=== PATIENT | female | born 1995 ===

== ENCOUNTER 2017-11-25 11:37 | Inpatient (IN) | payer MEDICAID ==
[2017-11-25] MEDS ORDERED: Lactated Ringer's 1,000 ML IV SCH (11:45)
[2017-11-25] MEDS ORDERED: Lidocaine Hydrochloride 5 ML INJ ONE (12:14)
[2017-11-25 12:35] VITALS: BMI 21.6
[2017-11-25] MEDS ORDERED: Oxycodone/Acetaminophen 5/325 mg Tab PO PRN (12:42)
[2017-11-25] MEDS ORDERED: Benzocaine/Menthol SPRAY TOP PRN (12:42)
--- NOTE | 2017-11-25 12:42 | OBDS ---
DELIVERY PERSONNEL Nurse Puncher Certified: carloz Delivery Doctor: DR Herndon Scrub Nurse: carloz Scooper: ANA Emery/Deepika Stratton RN/Sherri Pelletier RN Anesthesiologist: carloz Physician Office Secretary: carloz Resident: Dr Kim MATERNAL INFORMATION Delivery Anesthesia: Local Medications in Delivery: pitocin Estimated Blood Loss (ml): 150cc Placenta Cultured: No RN Comments: precipitous to alive baby girl with one loose cord around the neck upon arrival in [facility]; 9/9;Dr Kim in attendance; DR Chavez in the unit, delivered placenta- complete; repair of lacerations done by same doctors Provider Comments: Pt was fully dilated and was pushing when she got to the [facility]. She immediately pu she the baby out. A viable female with BW of 3030gma and scores of 9 and 9 was delivered over a second degree perineal laceration which was repaired with 2-0 chromic with good cosmesis. EBL - 250mls Pt tolerated procedure well. LABOR SUMMARY EDC: 12/19/2017 00:00 No. Babies in Womb: 1 Attempted: No LABOR INFORMATION Onset of Labor: 11/24/2017 01:00 Other Ripening Agents: na Oxytocin: na Steroids Given: None Reason Steroids Not Administered: Not Applicable Other Reason Not Administered: na MEMBRANES Membranes Rupture Method: unknown STAGES OF LABOR Stage 3 hrs: 0 Stage 3 min: 22 Total Time in Labor hrs: 35 Total Time in Labor min: 4 VAGINAL DELIVERY Episiotomy: None Laceration Extension: Second Degree Laceration Type: Perineal Laceration Repair: Yes Initial Vag Sponge Count: 6 Final Vag Sponge Count: 6 Initial Vag Sharps Count: 3 Final Vag Sharps Count: 3 Sharps Count Correct: Yes Count Comment: count correct/ ChayitoRN BABY A INFORMATION Delivery Date/Time: 11/25/2017 11:42 Method of Delivery: Vaginal Born in Route : No : N/A Forceps: N/A Vacuum Extraction: N/A Shoulder Dystocia : No SHOULDER DYSTOCIA BABY A Delivery Date/Time: 11/25/2017 11:42 PRESENTATION/POSITION BABY A Presentation: Cephalic Cephalic Presentation: Vertex Breech Presentation: N/A PLACENTA INFORMATION BABY A Placenta Delivery Time : 11/25/2017 12:04 Placenta Method of Delivery: Spontaneous Placenta Status: Delivered SCORES BABY A Heart Rate 1 min: >100 bpm Resp Effort 1 min: Good Cry Reflex Irritability 1 min: Cough or Sneeze or Pulls Away Muscle Tone 1 min: Active Motion Color 1 min: Body Huslia, Extremities Blue Resuscitation Effort 1 min: Tactile Stimulation SCORE 1 MIN: 9 Heart Rate 5 min: >100 bpm Resp Effort 5 min: Good Cry Reflex Irritability 5 min: Cough or Sneeze or Pulls Away Muscle Tone 5 min: Active Motion INFORMATION BABY A Gestational Age at Delivery: 36.4 Gestational Status: Outcome : Liveborn Infant Condition : Stable Infant Sex: Female WEIGHT/LENGTH BABY A Infant Birthweight (gms): 3030 Infant Weight (lb): 6 Infant Weight (oz): 11 CORD INFORMATION BABY A No. Cord Vessels: 3 Nuchal Cord : Around Neck x1, Loose Nuchal Cord Other: na True Knot: na Cord pH Baby Arterial: na Infant Cord pH Baby Venous: na Banking/Donate Info: na Infant Suction: Mouth
[2017-11-25] MEDS ORDERED: Oxytocin 30 units/LR 500ML 30 U/500 ML BAG IV SCH (12:45)
[2017-11-25 13:27] LABS: BASO % 0.3 % (0.0-2.0); EOS % 0.1 % (0.0-4.0); HEMOGLOBIN 11.4 g/dL (12.0-16.0); LYMPH # 1.5 K/uL (1.0-4.3); LYMPH % 16.1 % (20.0-40.0); MEAN CELL VOLUME 85.8 fl (81.0-99.0); MEAN CORPUSCULAR HGB CONC 32.6 g/dL (33.0-37.0); MEAN PLATELET VOLUME 9.9 fl (7.2-11.7); MONO # 0.3 K/uL (0.0-0.8); MONO % 3.1 % (0.0-10.0); NEUT # 7.3 K/uL (1.8-7.0); NEUT % 80.4 % (50.0-75.0); RBC 4.08 Mil/uL (3.80-5.20); RED CELL DISTRIBUTION WIDTH 16.3 % (11.5-14.5); WHITE BLOOD COUNT 9.1 K/uL (4.8-10.8)
[2017-11-25 13:37] LABS: ALB/GLOB RATIO 1.1 (1.0-2.1); ALBUMIN 3.5 g/dL (3.5-5.0); ALT/SGPT 21 U/L (9-52); AST/SGOT 21 U/L (14-36); BLOOD UREA NITROGEN 11 mg/dl (7-17); CALCIUM 8.9 mg/dL (8.4-10.2); GFR AFRICAN-AMERICAN > 60; GFR NON-AFRICAN AMERICAN > 60
[2017-11-25 15:53] LABS: URINE BILIRUBIN NEGATIVE (NEGATIVE); URINE BLOOD LARGE (NEGATIVE); URINE CLARITY CLOUDY (Clear); URINE COLOR YELLOW (YELLOW); URINE GLUCOSE (UA) NEG (Normal); URINE LEUKOCYTE ESTERASE TRACE Leu/uL (Negative); URINE PROTEIN 100 mg/dL (NEGATIVE); URINE UROBILINOGEN 0.2-1.0 mg/dL (0.2-1.0)
[2017-11-25 16:09] LABS: BENZODIAZEPINES, UR NEGATIVE (NEGATIVE); OPIATES, UR NEGATIVE (NEGATIVE); PHENCYCLIDINE, UR NEGATIVE (NEGATIVE)
[2017-11-25 16:18] LABS: BARBITURATES, UR NEGATIVE (NEGATIVE)
--- NOTE | 2017-11-25 16:50 | OBHP ---
Datetime: 11/25/2017 12:55 IP Adm Impression: Term, intrauterine ; Active labor IP Admit Plan: Admit to unit; Initiate labor protocol Admit Comment, IP Provider: Pt is a 22 y/o female with IUP 37.1 wks based on LMP, who presen riky to [facility] with LOF at 10:30am (1 hr prior to presentation) and severe contractions. Pt had just arr ived from [place] the night before. ROS negative. PNC: Did not receive any care during this . States that in [place], "PNC is not n eeded." OBHx: 2 prior , full term, no complications. No terminations/abortions. One baby given to adop tion. PMHX: denies Medications: denies Allergies: denies Social: denies habits x3 Physical Exam: Vitals stable on presenation. Pt found to be sitting in wheelchair, in acute distress with h ead protruding from vaginal outlet. No signs of respiratory distress. Cardiopulmonary exam wnl. No pe shirley edema. Fetus delivered (see delivery note) Assessment: IUP at 37.1 weeks as per LMP, no PNC, preciptous labor and delivery. Plan: Admit to hospital. Post care. Labs: CBC, Type and Screen, ABO, RH, U/A, Utox, Hep B, HIV, RPR,Varicella, Rubella, Utox, Quantiferon. Discussed case with Dr. Herndon PGY1 Julio. Attending Note: Pt was recieved and treated at the [facility] with the resident and I agree with the abo ve plan. Brenton Herndon. EGA AdmitDate IP: 36.4 Vital Signs Provider: Reviewed; Within Normal Limits IP Chief Complaint: Uterine contractions Dilatation, Provider: 10
[2017-11-26 07:29] LABS: HEMOGLOBIN 9.8 g/dL (12.0-16.0); MEAN CELL VOLUME 85.1 fl (81.0-99.0); MEAN CORPUSCULAR HEMOGLOBIN 28.1 pg (27.0-31.0); RBC 3.49 Mil/uL (3.80-5.20); RED CELL DISTRIBUTION WIDTH 16.2 % (11.5-14.5); WHITE BLOOD COUNT 9.8 K/uL (4.8-10.8)
--- NOTE | 2017-11-26 08:45 | OBPPN ---
Datetime: 11/26/2017 08:40 PP Pain Prov: Within normal limits PP Nausea Prov: Denies PP Flatus Prov: Yes PP Breasts Prov: Normal PP Heart Prov: Normal PP Lungs Prov: Normal PP Abdomen/Uterus Prov: Normal PP Lochia Prov: Normal PP Vulva/Perineum Prov: Normal PP CVA Tenderness Prov: Normal PP Extremities Prov: Normal PP Progress Prov: Normal PP Comments Phys Exam Prov: Abd: Soft, NT, BS - Present UT - Firm PP Impression Prov: Normal progression PP Plan Prov: Continue present management PP Progress Note Prov: S/P , PPD#1 Clinically Stable. Plan: Continue care. Vital Signs Provider PP: Reviewed
--- NOTE | 2017-11-27 07:56 | NBDCN ---
Datetime: 11/27/2017 07:52 Nsy Prov Gen Appearance: Within Normal Limits Nsy Prov Skin: Within Normal Limits Nsy Prov Neuro: Normal Tone; Cornelio; Grasp; Root; Suck Nsy Prov Musculoskeletal: Within Normal Limits; Full Range of Motion; Spontaneous Movement All Extre mities; Intact Clavicles; Clavicles without Crepitus; Gluteal Folds Symmetrical; Spine Within Normal Limits; No Sacral Dimple/Cyst Nsy Prov Head: Normal Fontanelles; Normocephalic; Sutures WNL Nsy Prov EENT: Mouth Within Normal Limits; Ears Within Normal Limits; Eyes Within Normal Limits; Eye s Red Reflex Bilaterally; Nose Within Normal Limits; Face Within Normal Limits Nsy Prov Cardiovascular: Within Normal Limits; Normal Pulses Nsy Prov Respiratory: Within Normal Limits Nsy Prov GI: Within Normal Limits; Soft; Normal Liver; Non Palpable Spleen; Patent Anus Nsy Prov Umbilicus: Within Normal Limits; Three Vessel Cord Nsy Prov : Normal Female Genitalia Nsy Prov Discharge: Discharge Home Today; Healthy Term [place]; Vital Signs Appropriate; Bonding Meghan ropriately Nsy Prov Disch Comments: Well baby girl. Follow up in Weeks NB: 1 Week Follow up Appt with NB: Office Datetime: 11/27/2017 06:37 Disch Follow Up With: MD Datetime: 11/25/2017 13:15 Lab, Bilirubin Total Serum: 1.6 H Peak Bilirubin Total Serum: 1.6 Blood Type: O POS
[2017-11-27] MEDS ORDERED: Tdap Vaccine 0.5 ml Vial (10-64 yrs) IM ONE (09:00)
--- NOTE | 2017-11-27 10:05 | OBDCSUM ---
Datetime: 11/27/2017 06:37 Discharged to, Provider: Home Follow up at, Provider: Disch Instr Activity: Normal activity Disch Instr Diet: Regular Discharge Instructions, Provider: Routine instructions given Discharge Diagnosis, Provider: Term Delivered Follow up in weeks, Provider: 4-6 weeks Disch Referrals: None Disch Activity Restrictions: No sexual activity; Nothing in vagina - [place], tampons, douche Discharge Comment, Provider: Diagnosis: 22 y/o female s/p , precipitous labor, 2nd degree p erineal laceration Pt arrived from [place] one day prior to presentation. Did not have any PNC received in [place]. care labs ordered, f/u results outpatient. May need Rubella vaccine. : Female, 3030g, 9/9 Post Summary: No complications during post period. Incision intact, Lochia less than menses. TDAP given. Anemic post . Discharge Instructions: 8. Encourage 9. PNV 1 tab po daily 10. Ibuprofen 600mg 1 tab prn for mild-mod pain 11. Ferrous Sulfate 325mg BID 12. ER precations: If excessive bleeding or fever without relief from medication, go to ED 13. F/U in 4-6 weeks or 1-2 weeks, F/U labs (Hep B, Rubella, etc) Contraception after Delivery: Undecided
--- NOTE | 2017-11-27 10:05 | OBPPN ---
Datetime: 11/27/2017 06:36 PP Pain Prov: Within normal limits PP Nausea Prov: Denies PP Flatus Prov: Yes PP BM Prov: Yes PP Impression Prov: Normal progression PP Plan Prov: Continue present management; Discharge PP Progress Note Prov: PPD 1 S: 22 y/o female s/p on 11/25/17 evaluated on PPD2. Pt was seen and examined at bedside this AM. No overnight events. Pt reports mild abdominal pain, but well controlled with pain meds. Am bulating. Breast feeding (with formula supplementation) without difficulty. Lochia is similar to mens es volume. No BM, but pasting gas per rectum. Denies fever/chills, diarrhea, nausea/vomiting, chest pain, dyspnea, and dizziness. O: VS: stable GEN: NAD Cardio: S1S2, no murmurs Lungs: clear breath sounds b/l, no wheezing Abdomen: BS+, appropriate tenderness to palpation. Uterus is firm and at the level of the umbilic us. EXT: No edema, calves nontender NEURO/PSYCH: AAOx3, no grossly focal deficits, preserved affect and mood. H/H (post ): 9.8/29.7 RPR, Rubella, and Hep B- pending HIV negative Assessment/Plan: 22 y/o female s/p , doing well on PPD1. Pt remains afebrile, tolerating pain with medication. Asymptomatic anemia, will continue to monitor. Tolerating diet. Anticipating d/c today. Discharge home today. F/U labs outpatient. Social work referral- pt had no care, needs to sign up for [facility]. Can get post par tunde [facility] up at [facility]. TDAP today Motrin 600mg q6 and Percocet q 4 for pain. Senakot 17.2 mg PO HS Case d/w OB Hospitalist Tierra Kim, PGY1 Addendum bt Dr. Serrano: Patient evaluated independently and I agree with the above IP PP Procedures: None Vital Signs Provider PP: Reviewed; Within Normal Limits
--- NOTE | 2017-11-27 12:09 | OBADHP ---
Datetime: 11/25/2017 12:55 Admit Comment, IP Provider: Pt is a 22 y/o female with IUP 37.1 wks based on LMP, who presen riky to [facility] with LOF at 10:30am (1 hr prior to presentation) and severe contractions. Pt had just arr ived from [place] the night before. ROS negative. PNC: Did not receive any care during this . States that in [place], "PNC is not n eeded." OBHx: 2 prior , full term, no complications. No terminations/abortions. One baby given to adop tion. PMHX: denies Medications: denies Allergies: denies Social: denies habits x3 Physical Exam: Vitals stable on presenation. Pt found to be sitting in wheelchair, in acute distress with h ead protruding from vaginal outlet. No signs of respiratory distress. Cardiopulmonary exam wnl. No pe shirley edema. Fetus delivered (see delivery note) Assessment: IUP at 37.1 weeks as per LMP, no PNC, preciptous labor and delivery. Plan: Admit to hospital. Post care. Labs: CBC, Type and Screen, ABO, RH, U/A, Utox, Hep B, HIV, RPR,Varicella, Rubella, Utox, Quantiferon. Discussed case with Dr. Herndon PGY1 Julio. Attending Note: Pt was recieved and treated at the [facility] with the resident and I agree with the abo ve plan. Brenton Herndon. Vital Signs Provider: Reviewed; Within Normal Limits IP Chief Complaint: Uterine contractions Dilatation, Provider: 10 EGA AdmitDate IP: 36.4 IP Adm Impression: Term, intrauterine ; Active labor IP Admit Plan: Admit to unit; Initiate labor protocol
[2017-11-27 16:33] LABS: HEPATITIS B SURFACE AG Negative (NEGATIVE)
[2017-11-27 19:19] LABS: RAPID PLASMA REAGIN NONREACTIVE (NONREACTIVE)
[2017-11-27 23:00] VITALS: BP 100/58; PULSE 74; RESP 18; TEMP 98.2; O2SAT 99
== END 2017-11-27 18:45 | disposition home or self-care (01) | DRG 775 ==
LOC: H.EROB2 11:37 → H.EROB 12:42 → H.OB/GYN 16:23
PROVIDERS: ADMIT Obstetrics & Gynecology; ATTEND Obstetrics & Gynecology
PROC: 10E0XZZ Delivery of Products of Conception, External Approach (ICD-10-PCS; principal; 2017-11-25)
PROC: 0KQM0ZZ Repair Perineum Muscle, Open Approach (ICD-10-PCS; 2017-11-25)
PROC: 4A1HXCZ Monitoring of Products of Conception, Cardiac Rate, External Approach (ICD-10-PCS; 2017-11-25)
PROC: 3E0234Z Introduction of Serum, Toxoid and Vaccine into Muscle, Percutaneous Approach (ICD-10-PCS; 2017-11-27)
DX: O69.81X0 Labor and delivery complicated by cord around neck, without compression, not applicable or unspecified (principal); O70.1 Second degree perineal laceration during delivery; O62.3 Precipitate labor; Z37.0 Single live birth; Z3A.37 37 weeks gestation of pregnancy; Z23 Encounter for immunization